=== PATIENT | male | born 1965 | race Hispanic/Latino ===

== ENCOUNTER 2017-06-21 13:11 | Emergency (ER) | payer SELFPAY ==
[~2017-06-21] VITALS: Ht 165.1 cm; Wt 89.0 kg
[2017-06-21 15:17] LABS: HEMATOCRIT 46.7 % (39.0-50.0); HEMOGLOBIN 15.7 g/dl (14.0-18.0); IMMATURE GRANULOCYTES 0.2 % (0.0-1.0); MEAN CELL VOLUME 94.3 fL CALC (80.0-100.0); MEAN CORPUSCULAR HGB 31.7 pG CALC (26.0-32.0); MEAN CORPUSCULAR HGB CONC 33.6 g/L CALC (32.0-36.0); NEUT# 6.84 thou/uL (1.82-7.42); RED BLOOD COUNT 4.95 mill/uL (4.70-6.10); RED CELL DISTRI WIDTH 11.7 % (11.5-15.5); URINE BILIRUBIN - DIPSTICK NEGATIVE (NEGATIVE); URINE BLOOD DIPSTICK NEGATIVE (NEGATIVE); URINE COLOR YELLOW; URINE GLUCOSE - DIPSTICK NEGATIVE (NEGATIVE); URINE KETONE NEGATIVE (NEGATIVE); URINE LEUK ESTERASE NEGATIVE (NEGATIVE); URINE NITRITE - DIPSTICK NEGATIVE (Negative); URINE PH 5.5 (4.5-8.0); URINE PROTEIN - DIPSTICK NEGATIVE (NEG-TRACE); URINE SPECIFIC GRAVITY >=1.030; URINE UROBILINOGEN - DIPSTICK 0.2 E.U./dL (0.2)
[2017-06-21 15:23] LABS: URINE CLARITY CLEAR
[2017-06-21 15:45] LABS: ALBUMIN 4.6 g/dL (3.2-5.0); ALKALINE PHOSPHATASE 55 u/l (38-126); ANION GAP 19 (6-22 (CALC)); BILIRUBIN, TOTAL 0.7 mg/dL (0.0-1.4); BUN 14 mg/dL (9-20); BUN/CREATININE RATIO 18 (12-20 (CALC)); CALCIUM 9.2 mg/dL (8.4-10.2); CARBON DIOXIDE 25 mmol/l (22-30); CHLORIDE 103 mmol/l (95-108); CREATININE 0.8 mg/dL (0.7-1.3); GFR > 60 ML/MIN (>=60 (CALC)); GFR FOR AFR.AMER. > 60 ML/MIN (>=60 (CALC)); GLUCOSE 185 mg/dL (75-110); POTASSIUM 4.5 mmol/l (3.5-5.1); SGOT/AST 30 u/l (17-59); SGPT/ALT 45 u/l (21-72); SODIUM 142 mmol/l (137-146); TOTAL PROTEIN 7.5 g/dL (6.3-8.2)
[2017-06-21 15:56] LABS: MYOGLOBIN 44 ng/mL (0 - 121)
[2017-06-21] MEDS ORDERED: ANTIVERT PO (16:11)
[2017-06-21] MEDS ORDERED: ZOFRAN ODT4 MG PO (16:11)
[2017-06-21 16:39] VITALS: BP 144/84
== END 2017-06-21 16:48 | disposition home or self-care (01) | DRG 149 ==
LOC: ED 13:11
PROVIDERS: Emergency Medicine
DX: H81.10 Benign paroxysmal vertigo, unspecified ear (principal); R11.0 Nausea; V89.0XXS Person injured in unspecified motor-vehicle accident, nontraffic, sequela

== ENCOUNTER 2019-02-03 19:47 | Emergency (ER) | payer BC ==
[~2019-02-03] VITALS: Ht 165.1 cm; Wt 90.0 kg
[~2019-02-03 19:47] MED LIST: ANTIVERT PO; ZOFRAN ODT4 MG PO
[2019-02-03 20:59] VITALS: BP 131/70
== END 2019-02-03 21:00 | disposition home or self-care (01) | DRG 605 ==
LOC: ED 19:47
PROC: 0HQFXZZ Repair Right Hand Skin, External Approach (ICD-10-PCS; principal; 2019-02-03)
DX: S61.216A Laceration without foreign body of right little finger without damage to nail, initial encounter (principal); W26.0XXA Contact with knife, initial encounter; Y93.89 Activity, other specified; Y92.009 Unspecified place in unspecified non-institutional (private) residence as the place of occurrence of the external cause